=== PATIENT | female | born 1955 | race Caucasian/White ===

== ENCOUNTER → 2020-03-27 10:20 | Outpatient (CLI) | payer OTHER, SELFPAY ==
--- NOTE | ~2020-03-27 | CT_ITS ---
EXAMINATION: CT cervical spine [facility] EXAM DATE: 03/27/2020 10:49 INDICATION: Cervicalgia, cervical fusion 30 years ago. TECHNIQUE: Spiral CT of the cervical spine was performed without contrast. Axial images were reviewe d. Coronal and sagittal reformatted images were also reviewed. The dose-length product (DLP) for thi s examination was 138.61 mGy-cm. The exposure was tailored according to patient size (auto mA exposu re control), and iterative reconstruction (ASIR) was used as additional dose reduction technique. Th ere is no prior study for comparison. FINDINGS: C6-7 vertebral bodies and facet joints are fused. There is severe disc disease at C5-6, mil d to moderate at C4-5 and C7-T1. The odontoid process is intact. The lateral masses of C1 line up wi th C2. Prevertebral soft tissue and pre-dens space are within normal limits. Mild apical emphysema. B iapical scarring. Level by level evaluation: C2-C3: There is a mild diffuse disc bulge. Uncovertebral joint arthropathy: Mild bilateral. Facet joint arthropathy: Severe right, mild left. Neural foraminal stenosis: Mild to moderate bilateral. Central canal stenosis: Mild. C3-C4: There is a mild diffuse disc bulge. Uncovertebral joint arthropathy: Mild to moderate right, mild left. Facet joint arthropathy: Severe right, moderate left. Neural foraminal stenosis: Severe right, mild left. Central canal stenosis: Mild. C4-C5: There is a mild diffuse disc bulge. Uncovertebral joint arthropathy: Moderate bilateral. Facet joint arthropathy: Severe bilateral. Neural foraminal stenosis: Moderate to severe bilateral. Central canal stenosis: Mild. C5-C6: There is a mild to moderate diffuse disc bulge. Uncovertebral joint arthropathy: Moderate to severe right, moderate left. Facet joint arthropathy: Moderate bilateral. Neural foraminal stenosis: Moderate right, mild to moderate left. Central canal stenosis: Mild to moderate. C6-C7: This level is fused. Uncovertebral joint arthropathy: Fused. Facet joint arthropathy: Fused. Neural foraminal stenosis: No stenosis. Central canal stenosis: No stenosis. C7-T1: There is a mild diffuse disc bulge. Uncovertebral joint arthropathy: Mild to moderate bilateral. Facet joint arthropathy: Mild to moderate right, mild left. Neural foraminal stenosis: Moderate to severe left, mild right. Central canal stenosis: Mild. IMPRESSION: 1. Advanced multilevel arthropathy as detailed above. Reviewed, dictated and finalized at location A.
== END ==
DX: M54.2 Cervicalgia (principal)
CPT/HCPCS: 72125

== ENCOUNTER → 2020-11-27 10:42 | Outpatient (CLI) | payer OTHER, SELFPAY ==
--- NOTE | ~2020-11-27 | MM_ITS ---
EXAMINATION: MM screening [place] BI w nuno HISTORY: Screening mammogram TECHNIQUE: Craniocaudal and mediolateral oblique 3-D tomosynthesis images were obtained and synthetic 2-D images were generated. CAD analysis was submitted and interpreted. COMPARISON: No prior mammogram is available for comparison at this institution. BREAST PARENCHYMAL COMPOSITION: There are scattered areas of fibroglandular density. FINDINGS: There are indeterminate calcifications in the upper outer quadrants of both breasts. No brooklynn picious mass or architectural distortion are identified. IMPRESSION: 1. Bilateral breast calcifications which may represent the patient's baseline however no comparison i s currently available. 2. Comparison with prior mammograms is necessary. BI-RADS Category 0: Incomplete: Needs comparison with prior mammograms. Reviewed, dictated and finalized at location A. IMPRESSION: 1. Bilateral breast calcifications which may represent the patient's baseline h owever no comparison is currently available. 2. Comparison with prior mammograms is necessary. BI-RADS Category 0: Incomplete: Needs comparison with prior mammograms.
--- NOTE | ~2020-11-27 | DEXA_ITS ---
Bone Density Report Name: Aracely Morocho Age: 65 Sex: Female Ethnicity: White Date of : 1955 Indication: postmenopausal; screening for osteoporosis; height loss; prior fracture; hysterectomy; Referring Provider: Merry Krishna Study: Bone densitometry was performed. Exam Date: November 27, 2020 Accession number: [id number] Bone Density: Region BMD T-score Z-score Classification AP Spine (L1-L4) 0.862 -1.7 0.0 Osteopenia Femoral Neck (Left) 0.620 -2.1 -0.6 Osteopenia Total Hip (Left) 0.726 -1.8 -0.6 Osteopenia Femoral Neck (Right) 0.556 -2.6 -1.2 Osteoporosis Total Hip (Right) 0.702 -2.0 -0.8 Osteopenia Total Hip Mean 0.714 -1.9 -0.7 Osteopenia World Health Organization criteria for BMD impression classify patients as: Normal (T-score at or above -1.0), Osteopenia (T-score between -1.0 and -2.5), or Osteoporosis (T-score at or below -2.5). 10-year Fracture Risk: FRAX not reported because: Some T-score for Spine Total or Hip Total or Femoral Neck at or below -2.5 Clinical Information Provided by Patient: Has had a low trauma fracture Smokes Has 3 or more alcoholic drinks per day Has used the following medications: Vitamin D, Calcium, SYNTHROID Has the following medical conditions: Hysterectomy Patient maximum height was 65.0 Menopause Age: 46 No regular weight bearing exercise Drinks caffeinated beverages Onset of menses at age 16 Number of children 2 Impression: The patient has established osteoporosis, based on the Right Femoral Neck T-score and the existence of a prior fracture. The patient has risk factors, including: smoking, excessive alcohol use, previous fracture. Discussion: HIGH RISK OF FRACTURE. BONE DENSITY IS UNDESIRABLY LOW AT ONE OR MORE SKELETAL SITES, CONSISTENT WITH POSTMENOPAUSAL OSTEOPOROSIS. This patient's lowest T-score, in a patient who has previously fractured, meets the World Health Organization's (WHO) criteria for severe osteoporosis. In untreated patients, the risk of osteoporotic fracture increases approximately two-fold for each 1.0 SD decrease in T-score. Low bone density is not the only risk factor for fracture; also consider factors such as patient's age, frailty or poor health, risk of falling, risk of injury, previous osteoporotic fracture, family history of osteoporosis, cigarette smoking, low body weight, etc. Not everyone with low bone mineral density has osteoporosis; osteomalacia and other metabolic bone disorders should also be considered. Patients who have osteoporosis should be evaluated for specific diseases and conditions (secondary causes) that may cause or contribute to bone loss. The [place] [employer] (AACE) and National Osteoporosis Foundation (NOF) recommend pharmacologic intervention for all postmenopausal women whose T-score is i
== END ==
PROVIDERS: PCP Internal Medicine
DX: Z12.31 Encounter for screening mammogram for malignant neoplasm of breast (principal); Z13.820 Encounter for screening for osteoporosis; R92.8 Other abnormal and inconclusive findings on diagnostic imaging of breast; M85.88 Other specified disorders of bone density and structure, other site; M85.852 Other specified disorders of bone density and structure, left thigh; M85.851 Other specified disorders of bone density and structure, right thigh; M81.0 Age-related osteoporosis without current pathological fracture
CPT/HCPCS: 77063; 77067; 77080